=== PATIENT | female | born 1995 | race African-American/Black ===

== ENCOUNTER 2018-09-28 05:38 | Inpatient (IN) | payer MEDICAID, OTHER ==
[~2018-09-28] VITALS: Ht 167.6 cm; Wt 99.8 kg
[2018-09-28] MEDS ORDERED: MAGNESIUM/ALUMINUM HYDROXIDE/SIMETHICONE 30ML UDC PO STA (06:42)
[2018-09-28] MEDS ORDERED: VISCOUS LIDOCAINE 2% 15 ML UDC PO STA (06:42)
[2018-09-28] MEDS ORDERED: SODIUM CHLORIDE 0.9% 1,000 ML IV ONE ×2 (06:42→10:00)
[2018-09-28] MEDS ORDERED: ONDANSETRON HCL 4MG/2ML INJ IV STA (06:42)
[2018-09-28 07:02] LABS: BASOPHILS % 0.4 % (0.0-2.0); EOSINOPHILS % 2.3 % (0.0-5.0); HEMATOCRIT. 41.5 % (36.0-48.0); HEMOGLOBIN. 13.6 g/dL (12.0-16.0); LYMPHOCYTES % 35.1 % (20.0-50.0); MEAN CORPUSCULAR HEMOGLOBIN 27.5 pg (28.0-32.0); MEAN CORPUSCULAR VOLUME 83.6 fL (81.0-99.0); MEAN PLATELET VOLUME 7.7 fl (7.4-10.4); MONOCYTES % 13.7 % (2.0-8.0); NEUTROPHILS % 48.5 % (40.0-76.0); PLATELET 258 x1000/uL (130-400); RED BLOOD CELL COUNT 4.96 mill/uL (4.2-5.4); RED CELL DISTRIBUTION WIDTH 13.7 % (11.6-14.6)
[2018-09-28 07:05] LABS: CLARITY URINE TURBID (CLEAR); COLOR URINE DARK YELLOW (YELLOW); KETONES URINE TRACE (NEGATIVE); LEUKOCYTE ESTERASE URINE 2+ (NEGATIVE); NITRITE URINE POSITIVE (NEGATIVE); OCCULT BLOOD URINE NEGATIVE (NEGATIVE); PH URINE 5.5 (4.5-8.0); PROTEIN URINE NEGATIVE (NEGATIVE)
[2018-09-28 07:07] LABS: CHLORIDE 104 mEq/L (98-107)
[2018-09-28 07:08] LABS: INR 1.1
[2018-09-28] MEDS ORDERED: CEFTRIAXONE 1 G PREMIX 50 ML IV NR (09:00)
[2018-09-28] MEDS ORDERED: MORPHINE SULFATE 4 MG/ML CPJ (NOT FOR IM USE) IV ONE (10:00)
[2018-09-28] MEDS ORDERED: CLONIDINE 0.1MG TABLET PO PRN (11:45)
[2018-09-28] MEDS ORDERED: DOCUSATE SODIUM 100MG CAPSULE PO PRN (11:45)
[2018-09-28] MEDS ORDERED: GUAIFENESIN 200MG/10ML SUGAR FREE UDC PO PRN (11:45)
[2018-09-28] MEDS ORDERED: IPRATROPIUM/ALBUTEROL 0.5-3(2.5)MG/3ML NEB INH PRN (11:45)
[2018-09-28] MEDS ORDERED: ACETAMINOPHEN 325MG TABLET PO PRN (11:45)
[2018-09-28] MEDS ORDERED: HYDROCODONE/ACETAMINOPHEN 5/325MG TABLET PO PRN (11:45)
[2018-09-28] MEDS ORDERED: MAGNESIUM/ALUMINUM HYDROXIDE/SIMETHICONE 30ML UDC PO PRN (11:45)
[2018-09-28] MEDS ORDERED: NA PHOS,M-B/NA PHOS,DI-BA ENEMA 118ML PR PRN (11:45)
[2018-09-28] MEDS ORDERED: ACETAMINOPHEN 650MG SUPP PR PRN (11:45)
[2018-09-28] MEDS ORDERED: DIPHENHYDRAMINE 50MG/ML VIAL IV PRN (11:45)
[2018-09-28] MEDS ORDERED: ACETAMINOPHEN 650MG/20.3ML UDC GT PRN (11:45)
[2018-09-28] MEDS: DEXT 5%/0.45% NACL 1000ML 1,000 ML IV SCH ×2 (12:30→23:05)
[2018-09-28] MEDS: SODIUM CHLORIDE 0.9% INJ 3ML FLUSH IVF SCH (14:00)
[2018-09-28 15:04] LABS: *AMPHETAMINES SCREEN URINE NEGATIVE (NEGATIVE); *BARBITURATES SCREEN URINE NEGATIVE (NEGATIVE); *BENZODIAZEPINES SCREEN URINE NEGATIVE (NEGATIVE); *COCAINE SCREEN URINE NEGATIVE (NEGATIVE); METHADONE URINE SCREEN NEGATIVE (NEGATIVE); OPIATES URINE SCREEN NEGATIVE (NEGATIVE)
[2018-09-28 15:10] LABS: CANNABINOID URINE SCREEN PRESUMTIVE POSITIVE (NEGATIVE); PHENCYCLIDINE URINE SCREEN NEGATIVE (NEGATIVE)
[2018-09-28] MEDS: HYDROMORPHONE HCL/PF 2MG/ML CPJ IV PRN (20:18)
[2018-09-28] MEDS: ONDANSETRON HCL 4MG/2ML INJ IV PRN (20:19)
[2018-09-28 21:20] VITALS: BP 114/76
[2018-09-29] VITALS: BP 113/67
[2018-09-29 04:00] VITALS: BP 107/61
[2018-09-29] MEDS: SODIUM CHLORIDE 0.9% INJ 3ML FLUSH IVF SCH ×2 (06:00→14:29)
[2018-09-29] MEDS: DEXT 5%/0.45% NACL 1000ML 1,000 ML IV SCH ×2 (07:39→22:10)
[2018-09-29 08:00] VITALS: BP 109/72
[2018-09-29 09:59] LABS: BASOPHILS % 0.7 % (0.0-2.0); EOSINOPHILS % 2.3 % (0.0-5.0); HEMATOCRIT. 40.8 % (36.0-48.0); HEMOGLOBIN. 13.6 g/dL (12.0-16.0); MEAN CORPUSCULAR HEMOGLOBIN 27.7 pg (28.0-32.0); MEAN CORPUSCULAR VOLUME 83.2 fL (81.0-99.0); MONOCYTES % 12.1 % (2.0-8.0); NEUTROPHILS % 51.9 % (40.0-76.0); PLATELET 260 x1000/uL (130-400); RED CELL DISTRIBUTION WIDTH 13.4 % (11.6-14.6)
[2018-09-29 10:11] LABS: CHLORIDE 103 mEq/L (98-107)
[2018-09-29 10:19] LABS: LDL CHOLESTEROL 70 mg/dL (5-100)
[2018-09-29 10:21] LABS: HDL CHOLESTEROL 46 mg/dL (40-59)
[2018-09-29] MEDS: HYDROMORPHONE HCL/PF 2MG/ML CPJ IV PRN (10:39)
[2018-09-29 12:00] VITALS: BP 109/77
[2018-09-29] MEDS: ONDANSETRON HCL 4MG/2ML INJ IV PRN (14:22)
[2018-09-29 16:00] VITALS: BP 111/79
[2018-09-29 20:00] VITALS: BP 118/77
[2018-09-30] VITALS: BP 126/84
[2018-09-30 04:00] VITALS: BP 101/61
[2018-09-30 08:00] VITALS: BP 115/67
[2018-09-30 12:00] VITALS: BP 98/52
[2018-09-30 16:00] VITALS: BP 118/73
[2018-09-30 17:35] LABS: BASOPHILS % 0.7 % (0.0-2.0); EOSINOPHILS % 1.4 % (0.0-5.0); HEMATOCRIT. 43.1 % (36.0-48.0); HEMOGLOBIN. 14.1 g/dL (12.0-16.0); MEAN CORPUSCULAR HEMOGLOBIN 27.4 pg (28.0-32.0); MEAN CORPUSCULAR VOLUME 83.8 fL (81.0-99.0); MONOCYTES % 11.5 % (2.0-8.0); NEUTROPHILS % 54.4 % (40.0-76.0); PLATELET 293 x1000/uL (130-400); RED BLOOD CELL COUNT 5.15 mill/uL (4.2-5.4); RED CELL DISTRIBUTION WIDTH 13.6 % (11.6-14.6)
[2018-09-30 17:45] LABS: CHLORIDE 102 mEq/L (98-107)
[2018-09-30 19:19] LABS: HEPATITIS B SURFACE ANTIGEN NEGATIVE
[2018-09-30] MEDS: DEXT 5%/0.45% NACL 1000ML 1,000 ML IV SCH (19:32)
[2018-09-30 19:49] LABS: HEPATITIS A AB IGM NEGATIVE (NEGATIVE)
[2018-09-30 20:00] VITALS: BP 110/66
[2018-10-01] VITALS: BP_SYST 103; BP_SYST 107; BP_DIAS 59; BP_DIAS 75
[2018-10-01 04:00] VITALS: BP 107/75
[2018-10-01] MEDS: DEXT 5%/0.45% NACL 1000ML 1,000 ML IV SCH (06:40)
[2018-10-01 10:01] LABS: CHLORIDE 103 mEq/L (98-107)
[2018-10-01 14:12] VITALS: BP 117/76
== END 2018-10-01 15:45 | disposition home or self-care (01) ==
LOC: ER 05:38 → 6EST 10:16 → ENRESERV 19:16
PROVIDERS: ADMIT Family Medicine; ATTEND Family Medicine
DX: K80.70 Calculus of gallbladder and bile duct without cholecystitis without obstruction (principal); E66.9 Obesity, unspecified; N39.0 Urinary tract infection, site not specified; F12.920 Cannabis use, unspecified with intoxication, uncomplicated; J45.909 Unspecified asthma, uncomplicated; E86.0 Dehydration; Z68.35 Body mass index [BMI] 35.0-35.9, adult
CPT/HCPCS: 36415; 74181; 76705; 80061; 80076; 80305; 84484; 86705; 86709; 86803; 87340; 96361; 96365; 96375; 99285; J0696; J1170; J2405; J7030

== ENCOUNTER 2019-06-11 11:24 | Emergency (ER) | payer SELFPAY ==
[~2019-06-11] VITALS: Ht 167.6 cm; Wt 100.0 kg
[2019-06-11 12:19] VITALS: BP 136/86
[2019-06-11] MEDS ORDERED: DEXAMETHASONE 10 MG/ML VIAL IM ONE (14:15)
[2019-06-11] MEDS ORDERED: IBUPROFEN 800MG TABLET PO ONE (14:15)
== END 2019-06-11 15:45 | disposition home or self-care (01) ==
LOC: ER 11:24
DX: J02.9 Acute pharyngitis, unspecified (principal); J45.909 Unspecified asthma, uncomplicated
CPT/HCPCS: 81025; 87070; 87430; 96372; 99283; J1100